=== PATIENT | female | born 1985 | race Caucasian/White ===

== ENCOUNTER 2019-03-15 10:18 | Emergency (ER) | payer OTHER ==
[~2019-03-15] VITALS: Ht 152.4 cm; Wt 72.1 kg
[2019-03-15 10:25] VITALS: Ht 152.4 cm; Wt 72.1 kg
[2019-03-15 11:24] LABS: PLATELET COUNT 268 x10^3mcL (130-400); RED CELL DISTRIBUTION WIDTH 12.8 % (11.5-14.5)
[2019-03-15 11:25] LABS: BASOPHIL % 0 % (0-2)
[2019-03-15 11:41] LABS: CALCIUM 8.1 mg/dL (8.5-10.1); CARBON DIOXIDE 29.9 mmol/L (21-32); CHLORIDE SERUM 103 mmol/L (98-107); CREATININE SERUM 0.9 mg/dL (0.6-1.0); GFR1 > 60 mL/min; GLUCOSE SERUM 110 mg/dL (74-106); POTASSIUM SERUM 4.4 mmol/L (3.5-5.1); SODIUM SERUM 139 mmol/L (136-145)
[2019-03-15 11:46] LABS: ALBUMIN 3.8 g/dL (3.4-5.0); ALKALINE PHOSPHATASE 79 U/L (46-116); ALT/SGPT 21 U/L (14-59); AST/SGOT 17 U/L (15-37); BILIRUBIN TOTAL 0.4 mg/dL (0.20-1.00); LIPASE 182 IU/L (73-393)
[2019-03-15 14:04] VITALS: BP 106/69
== END 2019-03-15 14:04 | disposition home or self-care (01) ==
LOC: ED 10:18
PROVIDERS: Emergency Medicine
DX: K80.50 Calculus of bile duct without cholangitis or cholecystitis without obstruction (principal); Z98.890 Other specified postprocedural states
CPT/HCPCS: J1885; J2270; J2405; J7030

== ENCOUNTER 2019-03-17 09:20 | Inpatient (IN) | payer OTHER ==
[~2019-03-17] VITALS: Ht 160 cm; Wt 68.2 kg
[2019-03-17 09:26] VITALS: Ht 160 cm; Wt 68.2 kg
--- NOTE | 2019-03-17 09:42 | NUR ---
PATIENT AAOX4 PRESENTS TO THE ED WITH C/O ABD PAIN SINCE TUESDAY. PT STS SHE WAS HERE AND DIAGNOSED WITH GALLSTONES, HOWEVER, SHE DOESNT HAVE AN APPT WITH HER MD UNTIL TUESDAY. SHE STS "PAIN MEDICATION IS NOT WORKING". BREATHING E/U, SKIN WARM, DRY AND INTACT. NO OTHER SS OF DISTRESS NOTED. WILL CONTINUE TO MONITOR.
[2019-03-17 10:18] LABS: CALCIUM 8.3 mg/dL (8.5-10.1); CARBON DIOXIDE 30.5 mmol/L (21-32); CHLORIDE SERUM 100 mmol/L (98-107); CREATININE SERUM 0.7 mg/dL (0.6-1.0); GFR1 > 60 mL/min; GLUCOSE SERUM 109 mg/dL (74-106); POTASSIUM SERUM 3.9 mmol/L (3.5-5.1); SODIUM SERUM 137 mmol/L (136-145)
[2019-03-17 10:22] LABS: ALKALINE PHOSPHATASE 76 U/L (46-116); ALT/SGPT 16 U/L (14-59); AST/SGOT 15 U/L (15-37); BILIRUBIN TOTAL 0.89 mg/dL (0.20-1.00); LIPASE 52 IU/L (73-393); TOTAL PROTEIN, SERUM 7.8 g/dL (6.4-8.2)
[2019-03-17 10:30] LABS: ALBUMIN 3.2 g/dL (3.4-5.0)
[2019-03-17 10:38] LABS: PLATELET COUNT 252 x10^3mcL (130-400)
--- NOTE | 2019-03-17 11:30 | NUR ---
MEDICATED PER MD ORDERS
--- NOTE | 2019-03-17 12:22 | NUR ---
ADVISED PT I STILL NEEDED URINE SAMPLE.
--- NOTE | 2019-03-17 13:23 | NUR ---
PT AMBULATORY WITH STEADY GAIT TO RESTROOM
[2019-03-17 13:29] LABS: BAND NEUTROPHIL 7 % (0-10); MONOCYTE 7 % (0-7); PLATELET MORPHOLOGY PLATELETS NORMAL; SEGMENTED NEUTROPHILS 78 % (37-75); rbc morphology (normal/abnorm) NORMAL (NORMAL)
--- NOTE | 2019-03-17 15:41 | NUR ---
MEDICATED PER MD ORDERS--
--- NOTE | 2019-03-17 17:00 | NUR ---
PATIENT RESTING ON GURNEY IN A POSITION OF COMFORT. VSS, NAD NOTED. WILL CONTINUE TO MONITOR.
--- NOTE | 2019-03-17 18:00 | NUR ---
PATIENT TAKEN TO CT FOR SCAN. VSS, WILL CONTINUE TO MONITOR UPON RETURN.
--- NOTE | 2019-03-17 18:17 | NUR ---
PATIENT BACK FROM CT AND PLACED ON THE GURNEY. VSS, NAD NOTED. WILL CONTINUE TO MONITOR.
--- NOTE | 2019-03-17 19:20 | NUR ---
PROVIDED REPORT TO SORAYA SOLIZ FOR CONTINUED CARE OF PATIENT.
--- NOTE | 2019-03-17 20:43 | NUR ---
DR. PIERCE AT [facility] FOR MSE AND SPEAKING WITH PATIENT ON PLAN OF CARE AND SURGERY WILL BE AROUND TUESDAY-TUESDAY MORNING. TUESDAY SURGERY IF PATIENT CONDITION WORSENS
--- NOTE | 2019-03-17 21:28 | NUR ---
GAVE REPORT TO SORAYA VILLARREAL. UPDATES GIVEN, QUESTIONS ANSWERED. WILL ADMIT PATIENT UP. PER DR. DONALD OK TO ADMIT PATIENT.
[2019-03-17 21:42] VITALS: BP 101/72
--- NOTE | 2019-03-17 21:53 | NUR ---
RECEIVED PT FROM SORAYA AUGUSTIN. PT A/OX4. C/O PAIN 03/06 TO ABD. DENIES SOB ON RA. IV PATENT TO R AND L HANDS. FAMILY AT BEDSIDE. PT ORIENTED TO ROOM AND SURROUNDINGS. CALL LIGHT WITHIN REACH, BED IN LOW POSITION. WILL CONTINUE TO MONITOR.
--- NOTE | 2019-03-17 21:53 | NUR ---
RECEIVED PT FROM ED VIA KAILEE. ORIENTED PT TO ROOM AND SURROUNDINGS. IV NOTED TO RH PATENT AND INTACT. INSTRUCTED PT ON THE USE OF CALL LIGHT FOR ASSISTANCE. ENDORSED PT TO PRIMARY NURSE TEODORA
--- NOTE | 2019-03-17 22:15 | NUR ---
PT MEDICATED FOR PAIN PRN PER EMAR.
--- NOTE | 2019-03-18 00:24 | NUR ---
PT RESTING IN NO ACUTE DISTRESS. RR EVEN AND UNLABORED. IV PATENT AND INFUSING WELL WITH NO S/S OF INFILTRATION. CALL LIGHT WITHIN REACH, BED IN LOW POSITION. WILL CONTINUE TO MONITOR.
[2019-03-18 05:06] VITALS: BP 90/51
[2019-03-18 06:34] LABS: BASOPHIL % 0.2 % (0-2); PLATELET COUNT 225 x10^3mcL (130-400)
--- NOTE | 2019-03-18 07:05 | NUR ---
PT AA/OX4 LAYING IN BED RESTING. EASILY AROUSABLE TO VERBAL STIMULI. NO S/S OF ACUTE DISTRESS. DENIES ABD. PAIN AT THIS TIME. DENIES N/V/D. NO SOB ON ROOM AIR. NO CHEST PAIN. CALM/COOPERATIVE. GREG-SURG. STRICT I/O IN PLACE. PT VERBALIZED UNDERSTANDING. NO FEVER. NO CHILLS. IVS WNL TO RH 22 GAUGE AND LH 20 GAUGE. PATENT AND FLUSHES WELL. IV FLUIDS FLOWING. VISITOR AT BEDSIDE. BED IN LOW POSITION. CALL LIGHT WITHIN REACH. INSTRUCTED TO USE CALL LIGHT TO CALL FOR ASSISTANCE PRN. VERBALIZED UNDERSTANDING. WILL CONTINUE TO MONITOR.
[2019-03-18 07:10] LABS: CALCIUM 7.6 mg/dL (8.5-10.1); CARBON DIOXIDE 26.2 mmol/L (21-32); CHLORIDE SERUM 105 mmol/L (98-107); CREATININE SERUM 0.7 mg/dL (0.6-1.0); GFR1 > 60 mL/min; GLUCOSE SERUM 80 mg/dL (74-106); MAGNESIUM 2.3 mg/dL (1.8-2.4); PHOSPHOROUS 2.6 mg/dL (2.5-4.9); POTASSIUM SERUM 3.6 mmol/L (3.5-5.1); SODIUM SERUM 140 mmol/L (136-145)
[2019-03-18 08:55] VITALS: BP 104/41
[2019-03-18 10:26] LABS: microscopic required? YES; urine erythrocyte 3+ (NEGATIVE)
[2019-03-18 10:34] LABS: AMPHETAMINE QUAL UR NONE DETECTED (See below)
[2019-03-18 10:38] VITALS: BP 90/49
--- NOTE | 2019-03-18 10:41 | NUR ---
PT COMPLAINT OF ABD PAIN TO RIGHT ABD. RATES /10. SHARP. ACUTE, INTERMITTENT. WORSE WITH MOVEMENT. BP 90/49, DR. HERNANDEZ AWARE. RECEIVED TELEPHONE ORDER TO DC IV MORPHINE AND GIVE 1L NS BOLUS. PT REFUSES TORADOL. ORDERS REPEATED BACK TO PHYSICIAN. VERIFIED. ENTERED. WILL CARRY OUT. WILL CONTINUE TO MONITOR.
--- NOTE | 2019-03-18 11:50 | NUR ---
IV NS BOLUS COMPLETE. BP 98/67, HR 89. DR. MCCRAY AWARE. PT CONTINUES TO HAVE RIGHT ABD. PAIN, SHARP/ACHING, WORSE WITH MOVEMENT. RATES 9/10. WILL GIVE PT PAIN MEDICATION ONCE VERIFIED BY PHARMACY. NO S/S OF ACUTE DISTRESS. NO SOB ON ROOM AIR. NO CHEST PAIN. NO MERINO. NO DIZZINESS. NO N/V. NO CHEST PAIN. IVS WNL TO RH AND LH. IV FLUIDS FLOWING TO RH. PATENT AND FLUSHES WELL. SITE WNL. BED IN LOW POSITION. CALL LIGHT WITHIN REACH. WILL CONTINUE TO MONITOR.
[2019-03-18 11:56] VITALS: BP 97/62
--- NOTE | 2019-03-18 14:11 | NUR ---
DR PIERCE CALLED AND CANCELLED SURGERY ( LAP/LENIN) SCHEDULED TODAY AT 1900 AND RE-SCHEDULED IT FOR 03/19/19 AT 1600,ANESTHESIA (DR HONG) MADE AWARE AND OR CREW MADE AWARE ABOUT CHANGES. ALSO RELAYED INFORMATION TO ASSIGND NURSE MELISSA-RN.
[2019-03-18 17:00] VITALS: BP 98/66
--- NOTE | 2019-03-18 18:20 | NUR ---
PT USING RESTROOM, AMBULATORY WITH FULL ROM. GAIT STEADY. NO COMPLAINT OF PAIN. NO N/V. NO SOB ON ROOM AIR. NO CHEST PAIN. NO FEVER. NO CHILLS. AA/OX4. IVS WNL TO LH/RH. IV FLUIDS FLOWING TO RH. PATENT AND FLUSHES WELL. CALM/COOPERATIVE. VS STABLE. BED IN LOW POSITION. CALL LIGHT WITHIN REACH. WILL ENDORSE TO ONCOMING SHIFT.
--- NOTE | 2019-03-18 19:18 | NUR ---
RECEIVED PT FROM PREVIOUS SHIFT. PT A/OX4. C/O "TOLERABLE" 10/04 PAIN TO ABD. DENIES SOB ON RA. IV PATENT AND INFUSING WELL WITH NO S/S OF INFILTRATION. CALL LIGHT WITHIN REACH ,BED IN LOW POSITION. FAMILY AT BEDSIDE. WILL CONTINUE TO MONITOR.
[2019-03-18 20:47] VITALS: BP 89/54
--- NOTE | 2019-03-19 00:35 | NUR ---
PT RESTING IN NO ACUTE DISTRESS. RR EVEN AND UNLABORED. CALL LIGHT WITHIN REACH, BED IN LOW POSITION. WILL CONTINUE TO MONITOR.
[2019-03-19 05:56] VITALS: BP 98/60
[2019-03-19 06:35] LABS: BASOPHIL % 0.4 % (0-2); PLATELET COUNT 255 x10^3mcL (130-400); RED CELL DISTRIBUTION WIDTH 12.9 % (11.5-14.5)
[2019-03-19 06:53] LABS: ALKALINE PHOSPHATASE 54 U/L (46-116); ALT/SGPT 10 U/L (14-59); AST/SGOT 12 U/L (15-37); BILIRUBIN TOTAL 0.3 mg/dL (0.20-1.00); CALCIUM 7.7 mg/dL (8.5-10.1); CARBON DIOXIDE 25.9 mmol/L (21-32); CHLORIDE SERUM 108 mmol/L (98-107); CREATININE SERUM 0.7 mg/dL (0.6-1.0); GFR1 > 60 mL/min; GLUCOSE SERUM 84 mg/dL (74-106); POTASSIUM SERUM 3.6 mmol/L (3.5-5.1); SODIUM SERUM 142 mmol/L (136-145); TOTAL PROTEIN, SERUM 6.2 g/dL (6.4-8.2)
[2019-03-19 07:14] LABS: ALBUMIN 2.3 g/dL (3.4-5.0)
--- NOTE | 2019-03-19 07:59 | NUR ---
AAO TIMES 4. MED SURG PATIENT. LUNGS CTA. NO SOB. O2 SAT ON RA 98%. BS'S ACTIVE TIMES 4. NPO FOR SURGERY. ABBIE LOPEZ. IV SITE CDI. COOPERATIVE. NO C/O PAIN. PERIPHERAL PULSES PALPABLE. NO EDEMA.
[2019-03-19 08:29] VITALS: BP 98/60
--- NOTE | 2019-03-19 17:31 | NUR ---
REPORT GIVEN BY FRANCO LIRA AT 1730 FROM PACU.
--- NOTE | 2019-03-19 17:50 | NUR ---
ARRIVED FROM PACU AT 1745. DROWSY BUT AROUSABLE. NO C/O PAIN. FAMILY PRESENT, SUPPORTIVE. 4 BANDAIDS TO ABDOMEN CDI. IV SITE CDI. FRANCO LIRA GAVE REPORT AGAIN. NO TELE, MED SURG PATIENT.
[2019-03-19 17:56] VITALS: BP 115/74
[2019-03-19 18:22] VITALS: BP 115/76
--- NOTE | 2019-03-19 19:45 | NUR ---
RECEIVED PT IN BED AWAKE, ALERT, ORIENTED X4. SPEECH CLEAR. ABLE TO MAKE NEEDS KNOWN. RESTING COMFORTABLE AT THIS TIME. AND FAMILY AT BEDSIDE. S/P LAP LENIN WITH X4 BANDAIDS TO ABD CDI. BREATHING EASILY ON ROOM AIR. BS ACTIVE IN ALL FOUR QUADS. IV TO RIGHT HAND INFUSING BS AT 100ML/HR. SCD'S TO BLE. SHIFT ASSESSMENT COMPLETED. CALL LIGHT WITHIN REACH. BED IS IN LOWEST POSITION. WILL CONTINUE TO MONITOR CLOSELY.
--- NOTE | 2019-03-19 21:10 | NUR ---
ALL DUE MEDICATION GIVEN ORDERED. ENCOURAGED PT TO GET OOB AND AMBULATE, PT AGREES TO AMBULATE TO BR WHEN SHE NEEDS TO GO. RESTING IN BED AT THIS TIME.
[2019-03-19 21:28] VITALS: BP 114/74
--- NOTE | 2019-03-20 00:30 | NUR ---
PT C/O ABD PAIN, MEDICATED WITH DILAUDID ORDERED. ZOSYN HUNG AND INFUSING WELL. ASSISTED PT TO BR, TOLERATED WELL. WILL CONTINUE TO MONITOR CLOSELY.
--- NOTE | 2019-03-20 03:55 | NUR ---
PT APPEAR TO BE SLEEPING IN NO DISTRESS. CALL LIGHT WITHIN REACH. IVF ONGOING. WILL CONTINUE TO MONITOR CLOSELY.
--- NOTE | 2019-03-20 05:10 | NUR ---
NORCO GIVEN AT THIS TIME FOR MILD PAIN. IVF ONGOING, NEW BAG HUNG. ALL NEEDS TENDED TO. WILL CONTINUE TO MONITOR CLOSELY.
[2019-03-20 05:43] VITALS: BP 112/78
--- NOTE | 2019-03-20 06:34 | NUR ---
PT RESTING IN BED. ALL NEEDS TENDED TO. IVF INFUSING WELL. FAMILY AT BEDSIDE. CALL LIGHT WITHIN REACH. WILL ENDORSE TO INOMING SHIFT.
--- NOTE | 2019-03-20 07:00 | NUR ---
RECIEVED PT RESTING IN BED WITH NO C/O PAIN OR DISTRESS AT THIS TIME. PT IS S/P APPY WITH 4 ABDOMINAL INCISION SITES COVERED WITH BANDAIDES, ALL CDI. A/O X4 WITH NO MERINO OR DIZZINESS. PT ALREADY TOLERATING AMBULATING WELL. NS 100ML/HR RUNNING IN RH. 2ND IV IN LH, BNOTH INTACT AND PATENT WITH NO REDNESS OR INFLAMMATION NOTED.FAMILY AT BEDSIDE. SAFETY PREC IN PLACE, CALL LIGHT WITHIN REACH, WILL MONITOR.
[2019-03-20 07:26] VITALS: BP 112/75
[2019-03-20 07:38] LABS: ALKALINE PHOSPHATASE 65 U/L (46-116); ALT/SGPT 20 U/L (14-59); AST/SGOT 27 U/L (15-37); BILIRUBIN TOTAL 0.4 mg/dL (0.20-1.00); CARBON DIOXIDE 25.8 mmol/L (21-32); CHLORIDE SERUM 107 mmol/L (98-107); CREATININE SERUM 0.7 mg/dL (0.6-1.0); GFR1 > 60 mL/min; GLUCOSE SERUM 84 mg/dL (74-106); POTASSIUM SERUM 3.8 mmol/L (3.5-5.1); SODIUM SERUM 143 mmol/L (136-145); TOTAL PROTEIN, SERUM 6.5 g/dL (6.4-8.2)
[2019-03-20 07:39] LABS: ALBUMIN 2.4 g/dL (3.4-5.0)
[2019-03-20 07:46] LABS: BASOPHIL % 0.2 % (0-2); PLATELET COUNT 346 x10^3mcL (130-400); RED CELL DISTRIBUTION WIDTH 12.7 % (11.5-14.5)
[2019-03-20] MEDS ORDERED: CIPRO500 MG PO (11:51)
--- NOTE | 2019-03-20 11:54 | NUR ---
TORODOL GIVEN PER EMAR FOR C/O 01/03 ABD PAIN. WILL REASSES
[2019-03-20] MEDS ORDERED: NORCO1 TA2 PO (11:55)
[2019-03-20 13:01] VITALS: BP 112/75
--- NOTE | 2019-03-20 14:27 | NUR ---
PT STABLE FOR DISCHARGE PER MD ORDER. ALL DISCHARGE INSTRUCTIONS, EDUCATION, AND PRESCRIPTIONS GIVEN TO PT. PT VERBALIZES UNDERSTANDING. BOTH IV'S REMOVED WITH CATHETER INTACT AND NO REDNESS OR INFLAMMATION NOTED. ID BAND REMOVED. PT WILL BE ESCORTED DOWN TO LOBBY VIA WC BY ADMINISTRATIVE COURT JUSTICE. ALL PERSONAL BELONGINGS IN HAND AND FAMILY AT SIDE.
== END 2019-03-20 15:05 | disposition home or self-care (01) | DRG 710 ==
LOC: ED 09:20 → MU 20:51
PROVIDERS: Family Medicine Addiction Medicine; ADMIT Internal Medicine
PROC: 0DNU0ZZ Release Omentum, Open Approach (ICD-10-PCS; 2019-03-19)
PROC: 0FT44ZZ Resection of Gallbladder, Percutaneous Endoscopic Approach (ICD-10-PCS; 2019-03-19)
PROC: 0F9 Hepatobiliary System and Pancreas, Drainage (ICD-10-PCS; principal; 2019-03-19 16:00)
DX: A41.9 Sepsis, unspecified organism (principal); E44.0 Moderate protein-calorie malnutrition; K80.12 Calculus of gallbladder with acute and chronic cholecystitis without obstruction; E83.51 Hypocalcemia; N28.1 Cyst of kidney, acquired; N83.201 Unspecified ovarian cyst, right side; Z68.30 Body mass index [BMI] 30.0-30.9, adult
CPT/HCPCS: G0378; J0330; J0690; J1170; J1885; J2001; J2175; J2250; J2270; J2405; J2543; J2704; J2710; J3010; J3490; J7030; J7120; Q0092; Q0162; Q9966; Q9967